=== PATIENT | male | born 1990 | race Caucasian/White ===

== ENCOUNTER 2019-12-30 09:00 | Emergency (ER) | payer SELFPAY ==
[2019-12-30 09:01] VITALS: BP 142/83; PULSE 77; RESP 16; TEMP 36.1; O2SAT 98; BMI 26.6
[2019-12-30 09:03] VITALS: BP 142/83; PULSE 77; RESP 16; TEMP 36.1; O2SAT 98
--- NOTE | 2019-12-30 09:10 | ED.VISSUMM ---
- ER Visit Summary Date of Service: 12/30/19 Chief Complaint: [Dental pain] History of Present Illness: The patient is a 29 M [presents the emergency department with dental pain and suspected early dental abscess. Patient states that he started having some discomfort last evening in his right upper molar. Patient states the tooth is broken and sometimes food will get stuck up there. Patient does not have dental insurance and has not been to a dentist in over 20 years. Today he went to work and his boss noted that his face was swollen and told him to go get an antibiotic. Patient denies any fevers. He does describe a little bit of a headache. Patient has history of kidney disease and unable to take NSAIDs.] Physical Examination: [HEENT-PERRLA, EOMI. Cranial nerves II through XII grossly intact. TMs clear. Mucous membranes moist. No adenopathy. Patient does have right upper facial swelling. Dentition-patient has tenderness to percussion over right upper molar tooth #3. Patient has gingival erythema and some soft tissue swelling noted. No fluctuance or discrete abscess noted. Cardiovascular-regular rate and rhythm without murmur or ectopy Lungs-clear to auscultation, chest wall stable without crepitus or subcu emphysema Abdomen-normoactive bowel sounds, soft, nontender, no rebound or rigidity, no peritoneal signs. Extremities-intact ?4, normal range of motion, normal pulses, atraumatic] Test Results: [None indicated] Emergency Department Course and Treatment: Patient was given 1 dose of clindamycin p.o. He does not want thing for pain and will stick with Tylenol. [] Treatment Plan: [Patient will be treated with clindamycin and given referral to local dentist.] Disposition: [Discharged home in stable condition] Impression: [Dental pain-early dental abscess] This note was generated with [employer] dictation software. It may contain incorrect words, spelling, and punctuation that were not noted in review of the chart prior to signing ED Disposition - Plan for ED Patient: Referrals: Care Physician,No Primary [Primary Care Provider] -
--- NOTE | 2019-12-30 09:12 | ED.DEP ---
ED Disposition - Plan for ED Patient: Instructions: Dental Abscess, Dental Pain Prescriptions: Clindamycin HCl [Cleocin] 300 mg PO Q6H #40 cap Transmission Status: Pending to [facility] [facility] Referrals: Care Physician,No Primary [Primary Care Provider] - Additional Instructions: see a dentist
[2019-12-30] MEDS: Clindamycin HCl 150 MG Capsule 300 MG PO (09:40)
== END 2019-12-30 09:43 | disposition home or self-care (01) ==
LOC: ED 09:25
PROVIDERS: Emergency Provider Emergency Medicine
DX: K04.7 Periapical abscess without sinus (principal)
CPT/HCPCS: 99283

== ENCOUNTER 2019-12-30 19:13 | Emergency (ER) | payer SELFPAY ==
[2019-12-30 09:01] VITALS: BMI 26.6
[2019-12-30 19:13] VITALS: BP 130/73; PULSE 77; RESP 18; TEMP 37.2; O2SAT 98; BMI 25.8
--- NOTE | 2019-12-30 20:42 | ED.VIS.DENTA ---
History of Present Illness Chief Complaint: Dental Informant: Patient Onset: Yesterday Context: Gradual Onset Timing: Continuous Quality: ache Location: right maxillary molar Current Severity: Severe Maximum Severity: Severe Associated Symptoms: Facial Swellling - without discharge, fever Narrative: Patient seen here earlier and placed on clindamycin which he has started, he was seen today. Swelling has become worse and the pain is [id number]. Tylenol is not helping. - Past Medical History (1) Chronic kidney disease Status: Chronic Past Medical History - Allergies and Home Meds Allergies/Adverse Reactions: Allergies cyclobenzaprine HCl [From Flexeril] Adverse Reaction (Verified 12/30/19 19:16) Other NSAIDS (Non-Steroidal Anti-Inflamma Adverse Reaction (Verified 12/30/19 19:16) Other Primary Care Physician: Care Physician,No Primary [Primary Care Provider] - Lives: With Family Smoking Status: Current some day smoker Review of Systems General: Denies: Chills, Fever, Sweats ENT: Reports: - - Dental pain. Facial swelling. Respiratory: Denies: Dyspnea, Cough, Dyspnea on exertion Gastrointestinal: Denies: Abdominal pain, Nausea, Vomiting, Diarrhea, Melena, Hematochezia Physical Exam Vital Signs/Narrative: Vital Signs Temp Pulse Resp BP Pulse Ox 12/30/19 19:13 98.9 F 77 18 130/73 H 98 Inital Vital Signs reviewed: Yes General: Well nourished, Well developed, - - In pain, no distress Head: Normocephalic, Atraumatic ENT: Moist mucous membranes, No rhinorrhea Mouth/Throat: Normal oral mucosa, Normal posterior oropharynx, No sublingual edema, Dental abscess - Right maxillary, with obvious facial asymmetry, Tenderness on tooth percussion - Tooth #3. Negative for: Trismus Neck: Supple, No lymphadenopathy, Nontender Skin: Normal color, No rash, No Trauma Neurological: Alert, Oriented x3, Cranial nerves II-XII grossly intact, Normal Strength, Normal Sensation, Normal Gait Psychological: Tearful Diagnostic/Tx/Re-eval - Medical Decision Making Patient obviously has a dental abscess, however it is not palpably discrete or pointing in the oral mucosa. As I discussed with the patient, I cannot guarantee that fishing with a needle after mucosal anesthesia that I will be able to obtain pus, which is the goal. Given that, he declines aspiration and just wants pain medication. I think giving him a dose of Decadron may help in addition to analgesics, his oars report is negative. He is agreeable and will return if worse, or if he changes his mind. ED Disposition - Plan for ED Patient: Disposition: Home or Assisted Living Diagnosis: Dental abscess Instructions: Dental Abscess Prescriptions: Oxycodone HCl/Acetaminophen [Percocet 5/325] 1 tab PO Q6H PRN PRN 3 Days #12 tab PRN Reason: Pain Prescription Printed Referrals: Dentist,Your [STAFF PHYSICIAN] - (See dental resource list)
[2019-12-30] MEDS: dexAMETHasone 4 MG Tablet 8 MG PO (21:00)
[2019-12-30] MEDS: oxyCODONE 5 MG Tablet PO (21:01)
[2019-12-30 21:06] VITALS: BP 128/60; PULSE 82; RESP 18; O2SAT 96
== END 2019-12-30 21:06 | disposition home or self-care (01) ==
PROVIDERS: Emergency Provider Emergency Medicine
DX: K04.7 Periapical abscess without sinus (principal); N18.9 Chronic kidney disease, unspecified; F17.200 Nicotine dependence, unspecified, uncomplicated
CPT/HCPCS: 99283